=== PATIENT | female | born 1985 ===

== ENCOUNTER 2025-01-24 06:16 | Day surgery (SDC) | payer BC, SELFPAY | END 2025-01-24 10:36 | disposition home or self-care (01) | LOC: GI 06:16 | PROVIDERS: ATTENDING PHYSICIAN Internal Medicine Gastroenterology | DX: R13.10 Dysphagia, unspecified (principal); K22.2 Esophageal obstruction; K22.89 Other specified disease of esophagus | CPT/HCPCS: 43249; 43239; 88305 ==